=== PATIENT | female | born 1965 | race Caucasian/White ===

== ENCOUNTER 2021-08-09 05:29 | Outpatient (CLI) | payer BC ==
[~2021-08-09] VITALS: Ht 170.2 cm; Wt 132.7 kg
[2021-08-10] MEDS ORDERED: ACET325C7 PO (12:43)
[2021-08-10] MEDS ORDERED: CALC500T7 PO (12:43)
== END 2021-08-10 12:48 | disposition home or self-care (01) ==
LOC: PREOP 05:29
PROVIDERS: ATTEND Surgery
DX: Z01.818 Encounter for other preprocedural examination (principal)

== ENCOUNTER 2021-08-16 08:20 | Day surgery (SDC) | payer BC ==
[~2021-08-16] VITALS: Ht 170.2 cm; Wt 132.7 kg
[2021-08-16] VITALS (11 sets, daily range): BP systolic 124–183; BP diastolic 54–97
[~2021-08-16 08:20] MED LIST: ACET325C7 PO; CALC500T7 PO
[2021-08-16] MEDS ORDERED: LACTATED RINGERS 1,000 ML IV PRN (09:00)
[2021-08-16] MEDS ORDERED: ceFAZolin 2 GM IV Premixed 50 ML IV ONE (09:00)
[2021-08-16] MEDS ORDERED: proPOfol 200 MG/20 ML (DIPRIVAN) VIAL IV ONE (09:03)
[2021-08-16] MEDS ORDERED: MIDAZOLAM 2 MG/2 ML (VERSED) VIAL ONE (09:03)
[2021-08-16] MEDS ORDERED: ONDANSETRON 4 MG/2 ML (SDV) Z0FRAN ONE (09:03)
[2021-08-16] MEDS ORDERED: LIDOCAINE PF 2% 5 ML (XYLOCAINE) VIAL ONE (09:03)
[2021-08-16] MEDS ORDERED: fentaNYL INJ 100 MCG/2 ML AMP ONE ×2 (09:03→12:34)
[2021-08-16] MEDS ORDERED: SEVOFLURANE (ULTANE) 15 ML INHAL SOLN ONE ×2 (09:04→11:40)
--- NOTE | 2021-08-16 09:26 | Progress Note-Pre Operative ---
Pre-Operative Progress Note H&P Reviewed The H&P was reviewed, patient examined and no changes noted. Date Seen by Provider: Aug 16, 2021 Time Seen by Provider: 09:25 Date H&P Reviewed: Aug 16, 2021 Time H&P Reviewed: 09:20 Pre-Operative Diagnosis: Incisional hernia JASKARAN ROBERT APRN Aug 16, 2021 09:26
[2021-08-16] MEDS ORDERED: HYDR-3817 PO (09:28)
--- NOTE | 2021-08-16 09:29 | Discharge Inst-Surgical ---
D/C Lap Instructions-KIDO Reconcile Patient Problems Problems Reviewed?: Yes New, Converted, or Re-Newed RX: RX on Chart Follow Up Appt in 2 weeks Activity as tolerated No driving for 24 hours No driving while on pain medications Incentive Spirometry use every 2 hours while awake Regular Diet Symptoms to Report: Fever over 101 degree F, Nausea/Vomiting Infection Signs and Symptoms to report: Increased redness, Foul odor of wound, Increased drainage Bathing instructions: May shower Operative Area Clean/Dry; Keep incision clean/dry If any problems/questions: Contact your physician or go to Emergency Room JASKARAN ROBERT APRN Aug 16, 2021 09:29
[2021-08-16] MEDS ORDERED: HYDROcodone/APAP 5 MG/325 MG (LORTAB) TAB PO ONE (09:30)
[2021-08-16] MEDS ORDERED: ONDANSETRON 4 MG/2 ML (SDV) Z0FRAN IVP PRN ×2 (09:30→12:45)
[2021-08-16] MEDS ORDERED: morphine INJ 10 MG/ML 1ML (SYR OR VIAL) IVP PRN (09:30)
[2021-08-16] MEDS ORDERED: ACETAMINOPHEN 325 MG TABLET PO PRN (09:30)
[2021-08-16] MEDS ORDERED: LIDOCAINE/EPI 2% 1:200,00 (XYLOCAINE) 20 ML VIAL ONE (09:35)
[2021-08-16] MEDS ORDERED: ROCURONIUM 50 MG/5 ML (ZEMURON) VIAL IV ONE (11:37)
[2021-08-16] MEDS ORDERED: NEOSTIGMINE 3 MG/3 ML VIAL ONE (11:38)
[2021-08-16] MEDS ORDERED: GLYCOPYRROLATE 0.2 MG/ML (ROBINUL) 2 ML VIAL ONE (11:38)
--- NOTE | 2021-08-16 11:41 | Progress Note-Post Operative ---
Post-Operative Progess Note Surgeon (s)/Petroleum Engineering Teacher (s) Surgeon ALIYA HA MD Petroleum Engineering Teacher: eladio spaulding FIELD RADIO TECHNICIAN Pre-Operative Diagnosis Incisional hernia Post-Operative Diagnosis incarcerated ventral abd incisional hernia Procedure & Operative Findings Date of Procedure 08/16/21 Procedure Performed/Findings open repair incarcerated ventral abd incisional hernia with mesh. Anesthesia Type get Estimated Blood Loss Estimated blood loss (mL): minimal Specimens/Packing Specimens Removed hernia sac ALIYA HA MD Aug 16, 2021 11:41
--- NOTE | 2021-08-16 12:35 | Anesthesia-General Post-Op ---
General Patient Condition Mental Status/LOC: Same as Preop Cardiovascular: Satisfactory Nausea/Vomiting: Absent Respiratory: Satisfactory Pain: Controlled Complications: Absent Post Op Complications Complications None Follow Up Care/Instructions Patient Instructions None needed. Anesthesia/Patient Condition Patient Condition Patient is doing well, no complaints, stable vital signs, no apparent adverse anesthesia problems. No complications reported per nursing. MONICA HOWARD CRNA Aug 16, 2021 12:35
[2021-08-16] MEDS ORDERED: fentaNYL INJ 100 MCG/2 ML AMP IVP ONE (12:45)
[2021-08-16] MEDS ORDERED: morphine INJ 10 MG/ML 1ML (SYR OR VIAL) IVP ONE (12:45)
[2021-08-16] MEDS ORDERED: meTOprolol 5 MG/5 ML (LOPRESSOR) VIAL IV ONE (12:45)
--- NOTE | 2021-08-16 18:50 | OPERATIVE REPORT ---
DATE OF SERVICE: 08/16/2021 ATTENDING PRIMARY CARE PHYSICIAN: Dr. Gregory Clay. PREOPERATIVE DIAGNOSIS: Symptomatic ventral abdominal incisional hernia. POSTOPERATIVE DIAGNOSIS: Incarcerated ventral abdominal incisional hernia with omentum within the hernia sac. PROCEDURE: Open incarcerated ventral abdominal incisional hernia repair with mesh. SURGEON: Aliya Ha MD FAMILY SERVICES MANAGER: William De La Vega APRN. ANESTHESIA: General endotracheal. ESTIMATED BLOOD LOSS: Minimal. FINDINGS: Incarcerated hernia with omentum within the hernia sac defect approximately 3 cm in size and 8 cm round-coated polypropylene mesh was placed. DISPOSITION: The patient tolerated the procedure well. INDICATIONS: The patient is a 56-year-old female who reports that she noticed a bulge in the umbilical region several months ago, which has increased in size and become more painful. She has had previous surgery within the region including laparoscopic cholecystectomy. Upon examination, she was found to have a symptomatic incisional hernia, which was incarcerated. She is otherwise eating well and having normal bowel movements. The patient was brought to the operating room, laid supine on the table. After adequate IV pain and sedative medications and general endotracheal intubation, the abdomen was prepped and draped in standard surgical fashion. A 0.5% Marcaine with epinephrine was then used to anesthetize the supraumbilical rim and a crescent shaped skin incision made using a 15 blade. The subcutaneous tissue was then dissected using cautery. The hernia sac was identified and completely dissected out using blunt dissection as well as electrocautery to the fascial base. The fascial defect was approximately 3 cm in size. There appeared to be only omentum within the hernia sac. The hernia was incarcerated. The hernia sac was then opened using Metzenbaum scissors and then completely opened using cautery under direct visualization. The omentum was incarcerated; however, not strangulated. This could not be reduced, and it was decided to resect this using electrocautery under direct visualization with visualization of good hemostasis. Good hemostasis was observed. An 8 cm round-coated polypropylene mesh was then placed into the defect and sutured transfascially in a concentric manner to the mesh using interrupted 0 Prolene sutures. Good hemostasis was observed. Subcutaneous tissue was then reapproximated using 3-0 Vicryl interrupted sutures. Skin was closed using 4-0 Monocryl running subcuticular suture. Wound was then cleaned and covered with Dermabond followed by tonsil sponges followed by 4 x 4 gauze followed by large Op-Site followed by abdominal binder. The patient tolerated the procedure well. We will start IV normal pain medication as well as a clear liquid diet. Once she is tolerating clears, has good pain control with oral pain medications, ambulating well, we will discharge her home. She will also be instructed to keep the abdominal binder on both day and night for the next two weeks and to remove the pressure dressing in approximately five days. She will also be instructed to do no heavy lifting or exertion for the next six weeks. Job ID: [id number] DocumentID: [id number] Dictated Date: 08/16/2021 11:51:49 Sales Lead Generator Date: 08/16/2021 18:50:20 Dictated By: ALIYA HA MD
== END 2021-08-16 14:20 | disposition home or self-care (01) ==
LOC: SDC 08:20
PROVIDERS: ATTEND Surgery
DX: K43.0 Incisional hernia with obstruction, without gangrene (principal); E66.01 Morbid (severe) obesity due to excess calories; Z68.42 Body mass index [BMI] 45.0-49.9, adult
CPT/HCPCS: 49561; 49568; 87081; 94664; C1781